=== PATIENT | male | born 1975 | race Caucasian/White ===

== ENCOUNTER 2022-08-31 13:04 | Emergency (ER) | payer BC ==
[2022-08-31] MEDS ORDERED: LORazepam 1 MG Tab PO ONE (14:06)
== END 2022-08-31 16:50 | disposition home or self-care (01) ==
LOC: JD.ED 13:04
DX: F41.9 Anxiety disorder, unspecified (principal); Z77.22 Contact with and (suspected) exposure to environmental tobacco smoke (acute) (chronic)
CPT/HCPCS: 36415; 80053; 80143; 80179; 80307; 84443; 85007; 85027; 93005; 99283; A9270

== ENCOUNTER 2023-05-04 08:36 | Day surgery (SDC) | payer BC ==
[~2023-05-04 08:36] MED LIST: Lactated Ringers 1,000 ML IV SCH; Sodium Chloride 0.9% 10 ML Syringe FLUSH PRN; Sodium Chloride 0.9% 10 ML Syringe FLUSH SCH
[2023-05-04] MEDS ORDERED: Gabapentin 300 MG Cap PO SCH (09:00)
[2023-05-04] MEDS ORDERED: Acetaminophen 325 MG Tab PO SCH (09:00)
[2023-05-04] MEDS ORDERED: HYDROmorphone 0.5 MG/0.5 ML Syringe IVPUSH PRN (09:11)
[2023-05-04] MEDS ORDERED: Ondansetron 4 MG/2 ML SDV IVPUSH PRN (09:11)
[2023-05-04] MEDS ORDERED: fentaNYL 100 MCG/2 ML SDV IVPUSH PRN (09:11)
[2023-05-04] MEDS ORDERED: Rocuronium 50 MG/5 ML Vial ONE ×2 (09:15→12:14)
[2023-05-04] MEDS ORDERED: Ondansetron 4 MG/2 ML SDV ONE (09:15)
[2023-05-04] MEDS ORDERED: Propofol 200 MG/20 ML SDV ONE (09:15)
[2023-05-04] MEDS ORDERED: Lidocaine 1% 2 ML ONE (09:15)
[2023-05-04] MEDS ORDERED: Ketorolac 30 MG/ML SDV ONE (09:15)
[2023-05-04] MEDS ORDERED: fentaNYL 100 MCG/2 ML SDV ONE (09:15)
[2023-05-04] MEDS ORDERED: Bupivacaine 0.5%/EPINEPHrine 1:200,000 50 ML MDV ONE (09:23)
[2023-05-04] MEDS ORDERED: Lidocaine 1% 30 ML SDV ONE (09:23)
[2023-05-04] MEDS ORDERED: EPINEPHrine 1 MG/ML SDV ONE (09:25)
[2023-05-04] MEDS ORDERED: ceFAZolin 2 GM Vial ONE (10:30)
[2023-05-04] MEDS ORDERED: Sugammadex Sodium 200 MG/2 ML VIAL ONE (10:57)
[2023-05-04] MEDS ORDERED: HYDROmorphone 0.5 MG/0.5 ML Syringe ONE (12:23)
[2023-05-04] MEDS ORDERED: Acetaminophen/oxyCODONE 325-5 MG Tab PO SCH (13:20)
== END 2023-05-04 13:32 | disposition home or self-care (01) ==
LOC: JD.SDS 08:36
PROVIDERS: ATTEND Surgery
DX: K40.20 Bilateral inguinal hernia, without obstruction or gangrene, not specified as recurrent (principal); K21.9 Gastro-esophageal reflux disease without esophagitis; G47.33 Obstructive sleep apnea (adult) (pediatric); E78.00 Pure hypercholesterolemia, unspecified; Z79.899 Other long term (current) drug therapy; Z87.891 Personal history of nicotine dependence; Z68.41 Body mass index [BMI] 40.0-44.9, adult; Z20.822 Contact with and (suspected) exposure to COVID-19; Z98.890 Other specified postprocedural states
CPT/HCPCS: 49650; A9270; C1727; C1781; J0171; J0690; J1170; J1885; J2405; J2704; J3010; J3490; J7120

== ENCOUNTER 2025-03-27 04:42 | Emergency (ER) | payer BC ==
[2025-03-27] MEDS: Alum Hydrox/Mag Hydrox/Simeth 30 ML, Lidocaine 2% 15 ML PO ONE (05:17)
[2025-03-27] MEDS: Famotidine 20 MG Tab PO ONE (05:17)
[2025-03-27 05:25] LABS: BASOPHILS PERCENT AUTO 0.4 % (0.0-1.0); EOSINOPHILS ABSOLUTE AUTO 0.3 K/mm3 (0.0-0.4); HEMATOCRIT 44.9 % (42.0-52.0); HEMOGLOBIN 14.8 gm/dl (14.0-18.0); IMMATURE GRAN ABSOLUTE AUTO 0.06 K/mm3 (0.00-0.05); IMMATURE GRAN PERCENT AUTO 0.6 % (0.0-0.4); LYMPHOCYTES ABSOLUTE AUTO 2.5 K/mm3 (1.0-4.8); LYMPHOCYTES PERCENT AUTO 23.7 % (24.0-44.0); MEAN CORPUSCULAR HEMOGLOBIN 29.1 pg (28.0-32.0); MEAN CORPUSCULAR VOLUME 88.4 fl (83.0-99.0); MEAN PLATELET VOLUME 9.9 fl (9.4-12.4); MONOCYTES ABSOLUTE AUTO 0.9 K/mm3 (0.0-0.8); MONOCYTES PERCENT AUTO 8.8 % (0.0-8.0); NEUTROPHILS ABSOLUTE AUTO 6.7 K/mm3 (1.8-7.7); NEUTROPHILS PERCENT AUTO 63.5 % (41.0-71.0); PLATELET COUNT,PLT 225 K/mm3 (150-400); RED BLOOD CELL COUNT 5.08 M/mm3 (4.52-5.90)
[2025-03-27 05:42] LABS: A/G RATIO 1.1 (1-2); ALBUMIN 3.5 g/dl (3.4-5.0); ANION GAP 12.9 (5-15); BILIRUBIN TOTAL 0.5 mg/dL (0.2-1.0); CALCIUM 9.1 mg/dL (8.5-10.1); EST CRCL DRUG DOSING (CG) 89.36 mL/min; POTASSIUM,K 3.9 mEq/L (3.5-5.1); PROTEIN TOTAL,TP 6.7 g/dl (6.4-8.2)
== END 2025-03-27 07:59 | disposition home or self-care (01) ==
LOC: JD.ED 04:42
DX: K21.9 Gastro-esophageal reflux disease without esophagitis (principal); R07.89 Other chest pain; Z79.899 Other long term (current) drug therapy
CPT/HCPCS: 36415; 71045; 80053; 83690; 84484; 85025; 93005; 99285; A9270; 93010; 99284